=== PATIENT | female | born 1980 | race Caucasian/White ===

== ENCOUNTER 2022-04-02 09:17 | Outpatient (CLI) | payer BC, SELFPAY ==
--- NOTE | 2022-04-02 09:15 | CRLHL7_ITS ---
For Patients: As a result of the Century Cures Act, medical imaging exams and procedure reports are released immediately into your electronic medical record. You may view this report before your referring provider. If you have questions, please contact your health care provider. INDICATION: F/U LEFT OVARIAN NONVASCULAR FOCUS COMPARISON: 07/29/2021 TECHNIQUE: 2D pearl scale and color Doppler images were acquired of the pelvis using a transabdominal and transvaginal approach. FINDINGS: Sonographic images demonstrate a normal size and smooth outer contour of the uterus. Uterus measures 8.8 cm in length by 4.9 cm in AP diameter by 5.4 cm in transverse dimension. The myometrium has a heterogeneous echotexture. The endometrial lining appears normal and measures 9 mm in composite thickness. Cervical nabothian cyst is present measuring 10 x 8 x 10 millimeters. The right ovary measures 3.4 x 2.5 x 2.1 cm in size and the left ovary measures 3.6 x 2.5 x 2.3 cm. The ovaries demonstrate normal arterial and venous blood flow on color Doppler analysis. There are no suspicious fluid collections within the cul-de-sac. Hypoechoic left ovarian structure measuring 1.3 x 1.1 x 1.1 cm. Heterogeneous area within the left ovary including areas of increased echotexture remains similar. IMPRESSION: Similar appearance of the left ovary with heterogeneous echotexture. Similar nonvascular area of mixed echotexture present. Heterogeneity of the uterine echotexture without defined leiomyoma. Dictated by Jabari Maciel MD @ 04/02/2022 11:33:07 AM (Electronically Signed)
== END 2022-04-02 09:18 | disposition home or self-care (01) ==
LOC: US 09:17
PROVIDERS: PCP Family Medicine; Visit Provider Registered Nurse
DX: N83.9 Noninflammatory disorder of ovary, fallopian tube and broad ligament, unspecified (principal)
CPT/HCPCS: 76830; 76856; 84443; 87086

== ENCOUNTER 2025-02-16 14:39 | Outpatient (CLI) | payer BC, SELFPAY ==
--- NOTE | 2025-02-16 14:40 | CRLHL7_ITS ---
For Patients: As a result of the Cures Act, medical imaging exams and procedure reports are released immediately into your electronic medical record. You may view this report before your referring provider. If you have questions, please contact your health care provider. INDICATION: BILATERAL SCREENING MAMMOGRAM, ASYMPTOMATIC 44 Y/O FEMALE COMPARISON: 06/03/2021 TECHNIQUE: Digital mammogram in CC and MLO projections including computer-aided detection (CAD) and tomosynthesis. BREAST COMPOSITION: The breasts are heterogeneously dense, which may obscure small masses. FINDINGS: No suspicious findings. ASSESSMENT: BI-RADS 1 Negative RECOMMENDATION: Annual screening mammogram. A lay language report of this examination will be provided to the patient. Dictated by: Jabari Maciel MD @ 02/17/2025 09:20:51 (Electronically Signed)
== END 2025-02-16 14:40 | disposition home or self-care (01) ==
LOC: MAMMO 14:40
PROVIDERS: PCP Family Medicine; Visit Provider Registered Nurse
DX: Z12.31 Encounter for screening mammogram for malignant neoplasm of breast (principal); R92.333 Mammographic heterogeneous density, bilateral breasts
CPT/HCPCS: 77063; 77067